=== PATIENT | male | born 1975 | race American Indian/Alaskan Native ===

== ENCOUNTER 2019-07-28 07:52 | Emergency (ER) | payer OTHER ==
[2019-07-28 08:02] VITALS: BP 150/83
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
[2019-07-28] MEDS ORDERED: CYCLOBENZAPRINE 10 MG TAB PO ONE (09:56)
[2019-07-28] MEDS ORDERED: IBUPROFEN 800 MG TAB PO ONE (09:56)
--- NOTE | 2019-07-28 10:21 | XRay Report ---
EXAMINATION: Right shoulder radiograph, 07/28/2019 CLINICAL INFORMATION: Right shoulder pain COMPARISON: None. FINDINGS: There are mild degenerative changes of the right humeral head. Otherwise, there is no evide nce of acute fracture or dislocation. IMPRESSION: Mild bony degenerative changes of the humeral head. Signer Name: An Long MD Signed: 07/28/2019 10:17 AM Workstation Name: [email or web address]
== END 2019-07-28 11:15 | disposition home or self-care (01) ==
LOC: ED 07:52
DX: S43.401A Unspecified sprain of right shoulder joint, initial encounter (principal); I10 Essential (primary) hypertension; Z79.899 Other long term (current) drug therapy; V89.2XXA Person injured in unspecified motor-vehicle accident, traffic, initial encounter; Y93.89 Activity, other specified; Y92.89 Other specified places as the place of occurrence of the external cause; Y99.8 Other external cause status
CPT/HCPCS: 99283

== ENCOUNTER 2021-05-15 10:57 | Emergency (ER) | payer SELFPAY ==
[2021-05-15 11:31] VITALS: BP 135/92
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
[2021-05-15 12:53] LABS: Basophils # (Auto) 0.2 K/mm3 (0.0-0.1); Basophils % (Auto) 2.2 % (0.0-1.8); Eosinophils # (Auto) 0.1 K/mm3 (0.0-0.4); Eosinophils % (Auto) 1.5 % (0.0-4.3); Hematocrit 46.3 % (35.5-45.6); Hemoglobin 15.9 gm/dl (11.8-15.2); Lymphocytes % (Auto) 11.6 % (13.4-35.0); Mean Corpuscular HGB Conc 34 % (32-34); Mean Corpuscular Volume 82 fl (84-94); Monocytes # (Auto) 0.5 K/mm3 (0.0-0.8); Monocytes % (Auto) 5.7 % (0.0-7.3); Platelet Count 169 K/mm3 (140-440); Red Blood Count 5.67 M/mm3 (3.65-5.03); Red Cell Distribution Width 14.4 % (13.2-15.2)
[2021-05-15 13:13] LABS: Alanine Aminotransferase 60 units/L (7-56); Albumin 4.5 g/dL (3.9-5); BUN/Creatinine Ratio 8; Blood Urea Nitrogen 9 mg/dL (9-20); Calcium 9.7 mg/dL (8.4-10.2); Hemolysis Index 25
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
[2021-05-15] MEDS ORDERED: ACETAMINOPHEN 500 MG TAB PO ONE (16:50)
--- NOTE | 2021-05-16 17:22 | Electrocardiograph Report ---
[facility] Test Date: 2021-05-15 Test Time: 17:33:07 Pat Name: LIZETTE CALI Department: Room: Gender: M [employer] Counter Assistant: RODNEY : 1975 Requested By: PRASHANT LEYVA Order Number: [id number] Reading MD: Jorge Wheeler Measurements Intervals [place] Rate: 68 P: 54 [place]: 164 QRS: 8 QRSD: 81 T: -2 QT: 386 QTc: 411 Interpretive Statements Sinus rhythm Low voltage, precordial leads Borderline inferior Q waves Compared to ECG 05/15/2021 11:46:39 No significant change Electronically Signed On 05-16-2021 17:21:57 EDT by Jorge Wheeler
--- NOTE | 2021-05-16 17:22 | Electrocardiograph Report ---
[facility] Test Date: 2021-05-15 Test Time: 11:46:39 Pat Name: LIZETTE CALI Department: Room: Gender: M [employer] Directional Surveyor: RODNEY : 1975 Requested By: PRASHANT LEYVA Order Number: [id number] Reading MD: Jorge Wheeler Measurements Intervals [place] Rate: 90 P: 47 [place]: 140 QRS: 12 QRSD: 81 T: -5 QT: 353 QTc: 433 Interpretive Statements Sinus rhythm Possible inferior infarct, old No previous ECG available for comparison Electronically Signed On 05-16-2021 17:21:35 EDT by Jorge Wheeler
== END 2021-05-15 18:00 | disposition home or self-care (01) ==
LOC: ED 10:57
DX: S00.03XA Contusion of scalp, initial encounter (principal); R55 Syncope and collapse; I10 Essential (primary) hypertension; Z79.899 Other long term (current) drug therapy; V49.49XA Driver injured in collision with other motor vehicles in traffic accident, initial encounter; Y92.410 Unspecified street and highway as the place of occurrence of the external cause; Y93.89 Activity, other specified; Y99.8 Other external cause status
CPT/HCPCS: 36415; 70450; 71275; 80053; 83735; 84484; 85025; 93005; 99284; Q9967